=== PATIENT | female | born 1960 | race Caucasian/White ===

== ENCOUNTER → 2020-02-22 | Outpatient (CLI) | payer OTHER ==
[~2020-02-22] MED LIST: ASPIRIN 81M81 MG/TA2 PO; CRESTOR40 MG PO; FLEXERIL5 MG PO; IMDUR 30MG30 MG/TAB PO; K-DUR 10 MEQ T10 MEQ PO; LASIX 40MG TABL40 MG PO; NITROSTAT0.4 MG/TAB SL; PREDNISONE10 MG PO; TOPROL XL 25MG25 MG PO; ZETIA 10MG TAB10 MG PO
== END ==
LOC: COL.LAB 08:00 → COL.CAR 02-25 06:00 → EDSTATUS 02-27 09:00
DX: Z20.828 Contact with and (suspected) exposure to other viral communicable diseases (principal)

== ENCOUNTER 2020-02-26 22:37 | Observation (INO) | payer OTHER ==
[~2020-02-26] VITALS: Ht 167.6 cm; Wt 79.3 kg
[2020-02-26] MEDS ORDERED: CRESTOR40 MG PO (23:53)
[2020-02-26] MEDS ORDERED: ASPIRIN 81M81 MG/TA2 PO (23:54)
[2020-02-26] MEDS ORDERED: ZETIA 10MG TAB10 MG PO (23:54)
[2020-02-26] MEDS ORDERED: LASIX 40MG TABL40 MG PO (23:55)
[2020-02-26] MEDS ORDERED: IMDUR 30MG30 MG/TAB PO (23:55)
[2020-02-26] MEDS ORDERED: TOPROL XL 25MG25 MG PO (23:55)
[2020-02-26] MEDS ORDERED: K-DUR 10 MEQ T10 MEQ PO (23:56)
[2020-02-26] MEDS ORDERED: NITROSTAT0.4 MG/TAB SL (23:57)
[2020-02-26] MEDS ORDERED: FLEXERIL5 MG PO (23:58)
[2020-02-26] MEDS ORDERED: PREDNISONE10 MG PO (23:59)
[2020-02-27 00:58] VITALS: BP 123/61; PULSE 69; TEMP 97.5
[2020-02-27 01:03] VITALS: BP 123/61; PULSE 69; TEMP 97.5
--- NOTE | 2020-02-27 01:18 | NUR ---
Pt arrived to unit at 2349 as a direct admit from [facility]. Pt oriented to room and call light. Pt resting in bed at this time. Assessment completed. Pt alert and oriented x4. Pt denies pain at this time. INT to left and right AC patent and free of complications. Advised pt that a bed alarm was going to be on while she was in bed due to being found down by EMS with AMS and pt stated she knew where the bed alarm was located and stated "I'll take care of that" while pointing at bed alarm. Pt denies any other needs at this time. Call light within reach. Will continue to monitor
[2020-02-27 04:19] VITALS: BP 138/50; PULSE 76; TEMP 98.4
--- NOTE | 2020-02-27 05:09 | NUR ---
Pt has had uneventful. Pt has been resting in bed since arrival to unit from [place]. Pt complained of headache and requested tylenol. Received orders for tylenol PRN and gave per orders for headache. INT to right and left ac without complications. Pt has been NPO since midnight per orders. Pt denies any other needs at this time. Call light within reach. Will continue to monitor
[2020-02-27 07:19] VITALS: BP 130/52; PULSE 76; TEMP 98
[2020-02-27 07:22] LABS: BASO % 0.3 % (0.0-2.0); EOS # 0.1 (0.0-0.7); GRAN # 8.5 (1.4-6.5); GRAN % 68.4 % (42.2-75.2); LYMPH # 2.9 (1.2-3.4); MEAN CELL VOLUME 88 fl (80.0-100.0); MEAN CORPUSCULAR HEMOGLOBIN 29 pg (27.0-31.0); MEAN CORPUSCULAR HGB CONC 33 g/dl (33.0-37.0); MEAN PLATELET VOLUME 11.9 fl (7.4-10.4); MONO # 0.9 (0.1-0.6); PLATELET COUNT 239 K/mm3 (130-400); RED BLOOD COUNT 4.89 M/mm3 (4.10-5.30); REDCELL DISTRIBUTION WIDTH-CV 12.4 % (11.5-14.5)
[2020-02-27 07:32] LABS: CALCIUM 9.4 mg/dL (8.4-10.2); CREATININE, serum 0.83 (0.52-1.25)
--- NOTE | 2020-02-27 10:18 | NUR ---
Patient is alert and oriented. she was informed that Dr Sosa her electrical line splicer is aware of her emergency admission into the hospital last night and will let her know when her previous schedule Heart cath for today will be done. Patient became agitated and insisted she needs to leave AMA. She said she is heading to [facility] as previously planned before she was admitted. Patient refuse to sign AMA form or have the IV removed. No Shift has been done at this time. Charge nurse and cloth mercerizing supervisor was informed about the incident. cloth mercerizing supervisor Informed me that the patient went down to the Re-admission desk.
--- NOTE | 2020-02-27 10:35 | NUR ---
Received a call from Admissions concerning pt. Pt had been a direct admit from [facility] for CP. Per Kenna SAINI pt positive per [place] report for Alcoholic Intoxication/Opiods UDS. EMS had picked up pt with AMS which improved with Narcan. Pt was transported to [facility] for direct admit. Pt had been previously scheduled for a Heart Cath [facility]. Pt told admissions she was leaving so she could be readmitted for her Heart Cath. Per Josue RN he met her in admissions to remove her IV's. Pt had refused to sign AMA papers and had left the floor. She pulled out one IV-Josue was able to remove the second. She was informed that if she stayed admitted she could have the Heart Cath but pt refused to stay-and now is in admissions trying to be admitted as an OUTPT for her Heart Cath. Pt was told per me via admissions that she would have to obtain a new auth for OUTPT cath since she had been admitted and left AMA.
--- NOTE | 2020-02-27 12:57 | NUR ---
Patient was originally scheduled for outpatient heart cath and she was assigned to me this morning, I found out around 829 that the patient had been admitted to the Medical floor overnight and would not be coming through the Express unit, Shortly after the Express charge nurse then informed me that the patient had sence left [facility] and was back down in admissions trying to get checked in for her previously scheduled outpatient procedure, after speaking with and discussing the case/situation with Cardiology and field nurse case manager I was asked to go down and remove her IV site and to inform her that due to leaving the inpatient setting [facility] we would not be able to re-admitt her as an outpatient and that she would need to be pre-approved again by her insurance and the procedure would be rescheduled at a later date, when I made it down to the lobby to explain this to the patient she became very upset and tore her IV's out / she did allow me to place dressings but not before blood got on the floor and table in the lobby
== END 2020-02-27 08:30 | disposition left against medical advice (07) ==
LOC: MEDICAL 22:37
PROVIDERS: ADMIT Student in an Organized Health Care Education/Training Program
DX: Z53.29 Procedure and treatment not carried out because of patient's decision for other reasons (principal)
CPT/HCPCS: G0378